=== PATIENT | male | born 1970 | race Caucasian/White ===

== ENCOUNTER 2021-07-29 10:29 | Inpatient (IN) | payer OTHER ==
[~2021-07-29] VITALS: Ht 182.9 cm; Wt 126.0 kg
[~2021-07-29 10:29] MED LIST: RXTRAM50 PO; SUCR1 PO; TOPI100 PO; TRAM50 PO
[2021-07-29 15:21] LABS: BASOPHILS ABSOLUTE AUTO 0.03 K/mm3 (0.00-0.23); BASOPHILS PERCENT AUTO 0 % (0-2); EOSINOPHILS ABSOLUTE AUTO 0.04 K/mm3 (0.00-0.68); EOSINOPHILS PERCENT AUTO 0 % (0-6); Hematocrit 44.1 % (37.0-53.0); Hemoglobin 14.9 g/dL (13.5-17.5); IMMATURE GRAN ABSOLUTE AUTO 0.03 K/mm3 (0.00-0.10); IMMATURE GRAN PERCENT AUTO 0 % (0-1); LYMPHOCYTES ABSOLUTE AUTO 2.36 K/mm3 (0.84-5.20); LYMPHOCYTES PERCENT AUTO 24 % (21-46); MONOCYTES ABSOLUTE AUTO 0.57 K/mm3 (0.16-1.47); MONOCYTES PERCENT AUTO 6 % (4-13); Mean Corpuscular HGB 29.4 pg (26.0-34.0); Mean Corpuscular HGB Conc 33.8 g/dL (31.5-36.5); Mean Corpuscular Volume 87 fL (80-100); NEUTROPHILS ABSOLUTE AUTO 6.69 K/mm3 (1.96-9.15); NEUTROPHILS PERCENT AUTO 69 % (41-73); Platelet Count 255 K/mm3 (150-400); RDW Coefficient Variation 14.4 % (11.7-14.2); RDW Standard Deviation 45.8 fL (35.1-46.3); Red Blood Cell Count 5.07 M/mm3 (4.30-5.90); White Blood Cell Count 9.72 K/mm3 (4.00-11.30)
[2021-07-29 15:45] LABS: C-REACTIVE PROTEIN, EXT RANGE 2.33 mg/dL (0.000-0.300)
[2021-07-29 15:47] LABS: Albumin, Blood 3.5 g/dL (3.4-5.0); Albumin/Globulin Ratio 0.8 (0.8-1.8); Bilirubin, Total 0.6 mg/dL (0.1-1.0); Bun/Creatinine Ratio 27.8 (12.0-20.0); Calcium, Blood 9.3 mg/dL (8.5-10.1); Creatinine, Blood 0.58 mg/dL (0.60-1.20); Globulin, Blood 4.3 g/dL (2.2-4.0); Potassium, Blood 3.8 mmol/L (3.5-5.5); Total Protein, Blood 7.8 g/dL (6.4-8.2)
[2021-07-29 20:00] LABS: Influenza A, PCR NEGATIVE (NEGATIVE); Influenza B, PCR NEGATIVE (NEGATIVE); Resp Syncytial Virus, PCR NEGATIVE (NEGATIVE); SARS-Cov-2 (COVID-19) PCR, MMC NEGATIVE (NEGATIVE)
[2021-07-30 04:59] LABS: BASOPHILS ABSOLUTE AUTO 0.06 K/mm3 (0.00-0.23); BASOPHILS PERCENT AUTO 1 % (0-2); EOSINOPHILS ABSOLUTE AUTO 0.09 K/mm3 (0.00-0.68); EOSINOPHILS PERCENT AUTO 1 % (0-6); Hematocrit 42.2 % (37.0-53.0); Hemoglobin 14.2 g/dL (13.5-17.5); IMMATURE GRAN ABSOLUTE AUTO 0.04 K/mm3 (0.00-0.10); IMMATURE GRAN PERCENT AUTO 0 % (0-1); LYMPHOCYTES ABSOLUTE AUTO 2.76 K/mm3 (0.84-5.20); LYMPHOCYTES PERCENT AUTO 23 % (21-46); MONOCYTES ABSOLUTE AUTO 0.92 K/mm3 (0.16-1.47); MONOCYTES PERCENT AUTO 8 % (4-13); Mean Corpuscular HGB 29.6 pg (26.0-34.0); Mean Corpuscular HGB Conc 33.6 g/dL (31.5-36.5); Mean Corpuscular Volume 88 fL (80-100); Mean Platelet Volume 10.1 fL (9.1-12.4); NEUTROPHILS ABSOLUTE AUTO 7.97 K/mm3 (1.96-9.15); NEUTROPHILS PERCENT AUTO 67 % (41-73); Platelet Count 232 K/mm3 (150-400); RDW Coefficient Variation 14.2 % (11.7-14.2); RDW Standard Deviation 45.9 fL (35.1-46.3); White Blood Cell Count 11.84 K/mm3 (4.00-11.30)
[2021-07-30 05:17] LABS: Albumin, Blood 3.1 g/dL (3.4-5.0); Albumin/Globulin Ratio 0.8 (0.8-1.8); Bilirubin, Total 0.4 mg/dL (0.1-1.0); Bun/Creatinine Ratio 22.6 (12.0-20.0); Calcium, Blood 8.8 mg/dL (8.5-10.1); Creatinine, Blood 0.71 mg/dL (0.60-1.20); Globulin, Blood 3.7 g/dL (2.2-4.0); Potassium, Blood 3.6 mmol/L (3.5-5.5); Total Protein, Blood 6.8 g/dL (6.4-8.2)
[2021-07-31 04:38] LABS: Hematocrit 43.2 % (37.0-53.0); Hemoglobin 14.4 g/dL (13.5-17.5); Mean Corpuscular HGB Conc 33.3 g/dL (31.5-36.5); Mean Corpuscular Volume 87 fL (80-100); Platelet Count 237 K/mm3 (150-400); RDW Coefficient Variation 14.1 % (11.7-14.2); RDW Standard Deviation 45.4 fL (35.1-46.3); Red Blood Cell Count 4.96 M/mm3 (4.30-5.90); White Blood Cell Count 9.84 K/mm3 (4.00-11.30)
[2021-07-31 04:55] LABS: Anion Gap 6 mmol/L (6-16); Blood Urea Nitrogen 14 mg/dL (8-24); Bun/Creatinine Ratio 19.6 (12.0-20.0); CO2, Blood 27 mmol/L (21-32); Calcium, Blood 8.4 mg/dL (8.5-10.1); Chloride, Blood 104 mmol/L (98-108); Creatinine, Blood 0.71 mg/dL (0.60-1.20); Glomerular Filtration Rate 112 (60-); Glucose, Blood 247 mg/dL (70-99); Phosphorus, Blood 3.6 mg/dL (2.5-4.9); Potassium, Blood 3.4 mmol/L (3.5-5.5); Sodium, Blood 137 mmol/L (136-145)
[2021-07-31 09:28] LABS: Vancomycin, Trough 18.6 ug/mL (5.0-10.0)
[2021-08-02 04:56] LABS: Hematocrit 43.4 % (37.0-53.0); Hemoglobin 14.4 g/dL (13.5-17.5); Mean Corpuscular HGB 29.1 pg (26.0-34.0); Mean Corpuscular HGB Conc 33.2 g/dL (31.5-36.5); Mean Corpuscular Volume 88 fL (80-100); Mean Platelet Volume 10.1 fL (9.1-12.4); Platelet Count 240 K/mm3 (150-400); RDW Coefficient Variation 14.3 % (11.7-14.2); RDW Standard Deviation 45.4 fL (35.1-46.3); Red Blood Cell Count 4.95 M/mm3 (4.30-5.90); White Blood Cell Count 11.03 K/mm3 (4.00-11.30)
[2021-08-02 05:15] LABS: Albumin, Blood 3.1 g/dL (3.4-5.0); Anion Gap 8 mmol/L (6-16); Blood Urea Nitrogen 13 mg/dL (8-24); Bun/Creatinine Ratio 17.3 (12.0-20.0); CO2, Blood 27 mmol/L (21-32); Calcium, Blood 8.9 mg/dL (8.5-10.1); Chloride, Blood 101 mmol/L (98-108); Creatinine, Blood 0.75 mg/dL (0.60-1.20); Glomerular Filtration Rate 111 (60-); Glucose, Blood 280 mg/dL (70-99); Phosphorus, Blood 3.7 mg/dL (2.5-4.9); Potassium, Blood 3.5 mmol/L (3.5-5.5); Sodium, Blood 136 mmol/L (136-145)
[2021-08-02 13:43] LABS: Vancomycin, Trough 15.2 ug/mL (5.0-10.0)
[2021-08-03] MEDS ORDERED: BASAGLAR K100 UNIT/1 SC (12:54)
[2021-08-03] MEDS ORDERED: HUMALOG JU100 UNIT/2 SC (12:56)
[2021-08-03] MEDS ORDERED: Percocet 5-3251 EACH PO (13:00)
[2021-08-03] MEDS ORDERED: HUMALOG KW100 UNIT/1 (13:02)
== END 2021-08-03 13:30 | disposition home or self-care (01) | DRG 617 ==
LOC: ER 10:29 → MEDS 10:30 → ER 18:42 → MEDS 18:42
PROVIDERS: Internal Medicine; Physician Assistant; Podiatrist Foot & Ankle Surgery; ADMIT Internal Medicine
PROC: 0Y6M0ZB Detachment at Right Foot, Partial 2nd Ray, Open Approach (ICD-10-PCS; principal; 2021-08-02 11:30)
DX: E11.69 Type 2 diabetes mellitus with other specified complication (principal); M86.8X7 Other osteomyelitis, ankle and foot; E87.1 Hypo-osmolality and hyponatremia; Z20.822 Contact with and (suspected) exposure to COVID-19; E11.51 Type 2 diabetes mellitus with diabetic peripheral angiopathy without gangrene; E11.621 Type 2 diabetes mellitus with foot ulcer; E87.6 Hypokalemia; E66.9 Obesity, unspecified; Z68.38 Body mass index [BMI] 38.0-38.9, adult; Z79.899 Other long term (current) drug therapy
CPT/HCPCS: 0241U; 36415; 73620; 73720; 80053; 80069; 80202; 82947; 83036; 83605; 85025; 85027; 85651; 86140; 87040; 90471; 90714; 93005; 93010; 96365; 96365-59; 96366; 96366-59; 96368; 96372; 96375; 99285-25; A9270; A9579; G0378; J0696; J1650; J1815; J2250; J2543; J2704; J3010; J3370; J3480; J7030; J7040; J7060; J7120

== ENCOUNTER 2022-05-31 23:23 | Emergency (ER) | payer OTHER ==
[~2022-05-31] VITALS: Ht 182.9 cm; Wt 83.9 kg
[~2022-05-31 23:23] MED LIST changes: +BASAGLAR K100 UNIT/1 SC; +HUMALOG JU100 UNIT/2 SC; +HUMALOG KW100 UNIT/1; +Percocet 5-3251 EACH PO
== END 2022-06-01 02:40 | disposition home or self-care (01) ==
LOC: ER 23:23
DX: S90.414A Abrasion, right lesser toe(s), initial encounter (principal); E11.9 Type 2 diabetes mellitus without complications; X58.XXXA Exposure to other specified factors, initial encounter; Z79.4 Long term (current) use of insulin; Z89.421 Acquired absence of other right toe(s)
CPT/HCPCS: 99283

== ENCOUNTER → 2023-03-23 | Outpatient (CLI) | payer OTHER ==
[~2023-03-23] MED LIST changes: +STEGLATRO15 MG
== END ==
LOC: LAB 15:50 → LAB SHORT 15:50
DX: R73.03 Prediabetes (principal)
CPT/HCPCS: 83036

== ENCOUNTER 2023-03-26 11:54 | Day surgery (SDC) | payer OTHER ==
[~2023-03-26] VITALS: Ht 182.9 cm; Wt 122.5 kg
--- NOTE | 2023-03-26 12:36 | NUR ---
03/26/23 1236 Zenaida Cross IN AT 1215 DAYNA IN AT 1216 CALL LIGHT AT BEDSIDE
[2023-03-26 13:16] VITALS: BP 111/67
--- NOTE | 2023-03-26 13:25 | NUR ---
03/26/23 9205 KYAW AGUERO PT STATES THAT HE HAS NEUROPATHY IN HIS FEET. HE DOES NOT FEEL DIZZY FROM ANYTHING WE HAVE DONE, BUT CAN BE UNSTEADY FROM THAT. AT TIMES HE USES A CANE AND HAS REPORTED THAT HE FALLS ON OCCASSION.
[2023-03-27] MEDS ORDERED: CEPH500 PO (21:34)
== END 2023-03-26 13:32 | disposition home or self-care (01) ==
LOC: ORSCSDS 11:54
PROVIDERS: Ophthalmology
PROC: 08RJ3JZ Replacement of Right Lens with Synthetic Substitute, Percutaneous Approach (ICD-10-PCS; principal; 2023-03-26 13:00)
DX: E11.36 Type 2 diabetes mellitus with diabetic cataract (principal); H25.13 Age-related nuclear cataract, bilateral; I10 Essential (primary) hypertension; G40.909 Epilepsy, unspecified, not intractable, without status epilepticus; Z79.899 Other long term (current) drug therapy
CPT/HCPCS: 82947; J2250; J3010; J3301; J7040; V2632

== ENCOUNTER 2023-03-27 21:15 | Emergency (ER) | payer OTHER ==
[~2023-03-27] VITALS: Ht 182.9 cm; Wt 122.5 kg
[2023-03-27 21:24] VITALS: BP 140/102
[2023-03-27] MEDS ORDERED: CEPH500 PO (21:34)
== END 2023-03-27 21:41 | disposition home or self-care (01) ==
LOC: ER 21:15
DX: L03.115 Cellulitis of right lower limb (principal); E11.9 Type 2 diabetes mellitus without complications; Z88.8 Allergy status to other drugs, medicaments and biological substances
CPT/HCPCS: 99283; A9270

== ENCOUNTER 2023-04-02 11:07 | Day surgery (SDC) | payer OTHER ==
[~2023-04-02] VITALS: Ht 182.9 cm; Wt 122.5 kg
[~2023-04-02 11:07] MED LIST changes: +CEPH500 PO
[2023-04-02 13:10] VITALS: BP 104/67
== END 2023-04-02 13:26 | disposition home or self-care (01) ==
LOC: ORSCSDS 11:07
PROVIDERS: Ophthalmology
PROC: 08RK3JZ Replacement of Left Lens with Synthetic Substitute, Percutaneous Approach (ICD-10-PCS; principal; 2023-04-02 13:00)
DX: H25.12 Age-related nuclear cataract, left eye (principal); Z96.1 Presence of intraocular lens; E11.36 Type 2 diabetes mellitus with diabetic cataract; E66.9 Obesity, unspecified; Z68.36 Body mass index [BMI] 36.0-36.9, adult; R56.9 Unspecified convulsions; I10 Essential (primary) hypertension; Z79.899 Other long term (current) drug therapy
CPT/HCPCS: 82947; J2250; J3010; J3301; J7040; V2632

== ENCOUNTER 2023-09-17 15:16 | Inpatient (IN) | payer OTHER ==
[~2023-09-17] VITALS: Ht 182.9 cm; Wt 126.1 kg
[~2023-09-17 15:16] MED LIST changes: -ACET325 PO; -CYMBALTA30 M2 PO; -SULTRIDS PO; -VISBIOME 112.51 EACH PO
[2023-09-17 16:03] LABS: BASOPHILS ABSOLUTE AUTO 0.04 K/mm3 (0.00-0.23); BASOPHILS PERCENT AUTO 0 % (0-2); EOSINOPHILS ABSOLUTE AUTO 0.05 K/mm3 (0.00-0.68); EOSINOPHILS PERCENT AUTO 0 % (0-6); Hematocrit 38.7 % (37.0-53.0); Hemoglobin 13.3 g/dL (13.5-17.5); IMMATURE GRAN PERCENT AUTO 1 % (0-1); LYMPHOCYTES ABSOLUTE AUTO 1.17 K/mm3 (0.84-5.20); LYMPHOCYTES PERCENT AUTO 10 % (21-46); MONOCYTES ABSOLUTE AUTO 1.05 K/mm3 (0.16-1.47); MONOCYTES PERCENT AUTO 9 % (4-13); Mean Corpuscular HGB 29.3 pg (26.0-34.0); Mean Corpuscular HGB Conc 34.4 g/dL (31.5-36.5); Mean Corpuscular Volume 85 fL (80-100); Mean Platelet Volume 8.8 fL (9.1-12.4); NEUTROPHILS ABSOLUTE AUTO 9.22 K/mm3 (1.96-9.15); NEUTROPHILS PERCENT AUTO 79 % (41-73); Platelet Count 311 K/mm3 (150-400); RDW Coefficient Variation 16.7 % (11.7-14.2); RDW Standard Deviation 52.1 fL (35.1-46.3); Red Blood Cell Count 4.54 M/mm3 (4.30-5.90); White Blood Cell Count 11.63 K/mm3 (4.00-11.30)
[2023-09-17 16:26] LABS: Albumin, Blood 2.6 g/dL (3.4-5.0); Albumin/Globulin Ratio 0.5 (0.8-1.8); Bilirubin, Total 0.5 mg/dL (0.1-1.0); Bun/Creatinine Ratio 22.8 (12.0-20.0); Calcium, Blood 9.1 mg/dL (8.5-10.1); Creatinine, Blood 0.61 mg/dL (0.60-1.20); Globulin, Blood 4.8 g/dL (2.2-4.0); Potassium, Blood 3.3 mmol/L (3.5-5.5); Total Protein, Blood 7.4 g/dL (6.4-8.2)
[2023-09-17] MEDS ORDERED: Cefepime HCl 2,000 MG in NS 100 ML IV ONE (19:25)
[2023-09-17] MEDS ORDERED: Vancomycin HCL 2,000 MG in NS 500 ML IV ONE (19:55)
[2023-09-17] MEDS ORDERED: Lactobacil 2-S.Thermo-Bifido 1 1 Cap PO SCH (21:00)
[2023-09-17] MEDS ORDERED: DULoxetine HCL 30 MG Cap DR PO SCH (21:00)
[2023-09-17] MEDS ORDERED: CYMBALTA30 M2 PO (21:58)
[2023-09-17 22:17] VITALS: BP 138/83
[2023-09-17] MEDS ORDERED: Potassium Chloride 20 MEQ TabCR PO ONE (23:00)
[2023-09-18] MEDS ORDERED: Ampicillin Sod/Sulbactam Sod 3 GM in NS 100 ML IV SCH
[2023-09-18 02:18] VITALS: BP 113/57
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
[2023-09-18 06:10] LABS: Hematocrit 39.2 % (37.0-53.0); Hemoglobin 12.8 g/dL (13.5-17.5); Mean Corpuscular HGB Conc 32.7 g/dL (31.5-36.5); Mean Corpuscular Volume 89 fL (80-100); Mean Platelet Volume 9.2 fL (9.1-12.4); Platelet Count 314 K/mm3 (150-400); RDW Standard Deviation 55.4 fL (35.1-46.3); Red Blood Cell Count 4.42 M/mm3 (4.30-5.90); White Blood Cell Count 11.29 K/mm3 (4.00-11.30)
[2023-09-18 06:37] LABS: Albumin, Blood 2.4 g/dL (3.4-5.0); Albumin/Globulin Ratio 0.6 (0.8-1.8); Bilirubin, Total 0.7 mg/dL (0.1-1.0); Bun/Creatinine Ratio 16.7 (12.0-20.0); Calcium, Blood 8.5 mg/dL (8.5-10.1); Creatinine, Blood 0.66 mg/dL (0.60-1.20); Globulin, Blood 4.3 g/dL (2.2-4.0); Potassium, Blood 3.4 mmol/L (3.5-5.5); Total Protein, Blood 6.7 g/dL (6.4-8.2)
[2023-09-18 07:46] VITALS: BP 136/78
[2023-09-18] MEDS ORDERED: Potassium Chloride 20 MEQ TabCR PO ONE (08:00)
[2023-09-18] MEDS ORDERED: Cefepime HCl 2,000 MG in NS 100 ML IV SCH ×2 (08:00→12:00)
[2023-09-18] MEDS ORDERED: Vancomycin HCL 1,750 MG in NS 500 ML IV SCH (08:00)
[2023-09-18] MEDS ORDERED: Empagliflozin 10 MG TAB PO SCH (09:00)
[2023-09-18] MEDS ORDERED: NS 250 ML IV PRN (09:35)
--- NOTE | 2023-09-18 10:59 | NUR ---
"Spiritual Care | Pt. Request Pt. is sitting up on the chuck eof his bed when he welcomes my visit. Pt. is pleasant and as I facilitate a life review rapport is established. Pt. verbalized that he has already had a visit from his medical records director, but welcomed this visit. Another worship staff member arrived as I prayed with the Pt. Pt. verbalized gratitude for the spiritual care visit and welcomed this real estate assistant to return."
[2023-09-18] MEDS ORDERED: Meropenem 2,000 MG in NS 250 ML IV SCH (12:00)
[2023-09-18 14:59] VITALS: BP 143/79
--- NOTE | 2023-09-18 19:03 | NUR ---
SHIFT SUMMARY- PT ALERT AND ORIENTED, 1PA WITH TRANSFERS. PT WAS SEEN BY PODIATRY, HE HAD AN MRI DONE TODAY AND PER THE PROGRAM PRODUCTION SPECIALIST IT WAS NEGATIVE FOR OSTEOMYOLITIS. HE TOLD THE PT HE WILL NEED A COUPLE DAYS OF IV ABX AND THEN SWITCH TO PO ABX. NO SURGERY PLANNED. WOUND CARE AND DRESSING CHANGE ORDERS PLACED. PT NOW NON-WEIGHT BEARING ON THE RLE. PT WILL NEED A HARD COPY SCRIPT FOR A KNEE WALKER. SPOKE TO CARE MANAGEMENT , THIS IS NOT A FORM OF DME THEY CAN ASSIST THE PT IN OBTAINING.
[2023-09-18 20:32] VITALS: BP 131/69
--- NOTE | 2023-09-19 00:02 | NUR ---
PT REPORTS HAVING DIFFICULTY SWALLOWING CERTAIN FOODS, REPORTS WILL HAVE PERIODS OF APNEA DUE TO INABILITY TO FULLY CLEAR CERTAIN FOODS. PT IS AWARE OF WHICH FOODS EXACERBATE AND TRIES TO AVOID. WILL MENTION TO DAY SHIFT RN TO SEE IF HOSPITALIST WANTS TO FOLLOW UP WITH A SPEECH EVAL.
[2023-09-19 04:55] VITALS: BP 139/74
[2023-09-19 07:04] LABS: BASOPHILS ABSOLUTE AUTO 0.04 K/mm3 (0.00-0.23); BASOPHILS PERCENT AUTO 0 % (0-2); EOSINOPHILS ABSOLUTE AUTO 0.16 K/mm3 (0.00-0.68); EOSINOPHILS PERCENT AUTO 2 % (0-6); Hematocrit 38.2 % (37.0-53.0); Hemoglobin 12.9 g/dL (13.5-17.5); IMMATURE GRAN ABSOLUTE AUTO 0.16 K/mm3 (0.00-0.10); IMMATURE GRAN PERCENT AUTO 2 % (0-1); LYMPHOCYTES ABSOLUTE AUTO 0.89 K/mm3 (0.84-5.20); LYMPHOCYTES PERCENT AUTO 10 % (21-46); MONOCYTES ABSOLUTE AUTO 0.93 K/mm3 (0.16-1.47); MONOCYTES PERCENT AUTO 10 % (4-13); Mean Corpuscular HGB 29.3 pg (26.0-34.0); Mean Corpuscular HGB Conc 33.8 g/dL (31.5-36.5); Mean Corpuscular Volume 87 fL (80-100); Mean Platelet Volume 8.5 fL (9.1-12.4); NEUTROPHILS ABSOLUTE AUTO 7.04 K/mm3 (1.96-9.15); NEUTROPHILS PERCENT AUTO 76 % (41-73); Platelet Count 292 K/mm3 (150-400); RDW Coefficient Variation 16.8 % (11.7-14.2); RDW Standard Deviation 53.7 fL (35.1-46.3); Red Blood Cell Count 4.41 M/mm3 (4.30-5.90); White Blood Cell Count 9.22 K/mm3 (4.00-11.30)
[2023-09-19 07:30] LABS: Vancomycin, Trough 10.5 ug/mL (5.0-10.0)
[2023-09-19 07:33] LABS: Calcium, Blood 8.2 mg/dL (8.5-10.1); Creatinine, Blood 0.62 mg/dL (0.60-1.20); Potassium, Blood 3.5 mmol/L (3.5-5.5)
[2023-09-19] MEDS ORDERED: NS 250 ML IV PRN (07:40)
[2023-09-19 07:44] VITALS: BP 141/80
[2023-09-19] MEDS ORDERED: Vancomycin HCL 1,500 MG in NS 250 ML IV SCH (08:00)
--- NOTE | 2023-09-19 10:55 | NUR ---
WOUND CARE COMPLETED PER ORDERS. SEE WOUND ASSESSMENT. PATIENT TOLERATED WELL. REPORTS NUMBESS TO BILAT FEET. REPORTED TO MIQUEL MCINTOSH.
[2023-09-19 15:34] VITALS: BP 124/75
--- NOTE | 2023-09-19 16:48 | NUR ---
SHIFT ASSESSMENT PATIENT PRESENTED WITH RIGHT FOOT WOUND TX VANCOMYOCIN, CIFEPINE. RIGHT LEG HAS MID LOWER LEG DEMARCATION. LEG IN AREA WAS WARM TO THE TOUCH AND SWOLLEN. VSS. UPON EXAM OF AREA ABOVE THE ULCERATION PATIENT REPORTED NO PAIN,NO DIZZINESS, NAUSEA, VOMITING REPORTED. NO FEVER REPORTED. BREAK NURSE CHANGED DRESSING AND REPORTED NO VISIBLE PUS/SLOUGH. RIGHT LEG IS VISIBLY LARGER THAN THE LEFT DUE TO THE SWELLING. DEMARCATION HAS IMPROVED.
--- NOTE | 2023-09-19 19:18 | NUR ---
SHIFT SUMMARY PATIENT RIGHT LEG EDEMA AND WARMTH ON LEG HAVE IMPROVED. THE ANTIBIOTICS VANYCOMYCIN, CIFIPINE GIVEN TWICE DURING SHIFT FOR TREATMENT OF INFECTIONS. PATIENT VITAL SIGNS ARE STABLE. PATIENT ABLE TO AMBULATE. VSS. NEURO WNL
--- NOTE | 2023-09-19 19:33 | NUR ---
SPEECH PATHOLOGIST ORDERED SOFT DIET FOR PATIENT D/T PATIENT HAVING DIFFICULTY SWALLOWING SOLID FOODS.
--- NOTE | 2023-09-19 19:36 | NUR ---
PATIENT BLOOD CULTURES STILL PENDING. OSTEOMYLTSIS NOTED
[2023-09-19 19:48] VITALS: BP 132/73
[2023-09-19] MEDS ORDERED: Acetaminophen 325 MG TABLET PO PRN (20:45)
[2023-09-20 04:33] VITALS: BP 131/79
[2023-09-20 07:19] LABS: BASOPHILS ABSOLUTE AUTO 0.06 K/mm3 (0.00-0.23); BASOPHILS PERCENT AUTO 1 % (0-2); EOSINOPHILS ABSOLUTE AUTO 0.16 K/mm3 (0.00-0.68); EOSINOPHILS PERCENT AUTO 2 % (0-6); Hematocrit 39.8 % (37.0-53.0); Hemoglobin 13.3 g/dL (13.5-17.5); IMMATURE GRAN ABSOLUTE AUTO 0.19 K/mm3 (0.00-0.10); IMMATURE GRAN PERCENT AUTO 2 % (0-1); LYMPHOCYTES PERCENT AUTO 11 % (21-46); MONOCYTES ABSOLUTE AUTO 0.91 K/mm3 (0.16-1.47); MONOCYTES PERCENT AUTO 10 % (4-13); Mean Corpuscular HGB 28.9 pg (26.0-34.0); Mean Corpuscular HGB Conc 33.4 g/dL (31.5-36.5); Mean Corpuscular Volume 87 fL (80-100); Mean Platelet Volume 8.6 fL (9.1-12.4); NEUTROPHILS ABSOLUTE AUTO 6.89 K/mm3 (1.96-9.15); NEUTROPHILS PERCENT AUTO 75 % (41-73); Platelet Count 308 K/mm3 (150-400); RDW Coefficient Variation 16.8 % (11.7-14.2); RDW Standard Deviation 53.4 fL (35.1-46.3); White Blood Cell Count 9.21 K/mm3 (4.00-11.30)
[2023-09-20 07:31] LABS: Bun/Creatinine Ratio 14.9 (12.0-20.0); Calcium, Blood 8.1 mg/dL (8.5-10.1); Creatinine, Blood 0.6 mg/dL (0.60-1.20); Potassium, Blood 3.4 mmol/L (3.5-5.5)
[2023-09-20 07:33] LABS: Vancomycin, Trough 14.5 ug/mL (5.0-10.0)
[2023-09-20 07:50] VITALS: BP 141/83
[2023-09-20] MEDS ORDERED: Potassium Chloride 10 Meq Tablet SA PO ONE (07:50)
[2023-09-20 17:23] VITALS: BP 145/86
--- NOTE | 2023-09-20 17:43 | NUR ---
SHIFT SUMMARY MR HOFFMAN IS OX4, TALKATIVE. NON WT BEARING TO R FOOT. USED WALKER AND GAIT BELT TO GO INTO BATHROOM WITH 1 PERSON ASSISTANCE. UNSTEADY GAIT. RIGHT FOOT DRESSING REDRESSED BY JOSE MCINTOSH TODAY. TAKING TYLENOL FOR PAIN WITH RELIEF. C/O SOME EPISODES OF CRAMPING TO RIGHT OUTER LOWER LEG. ENCOURAGED TO KEEP R FOOT ELEVATED MUCH POSSIBLE. BED LOW, CALL LIGHT IN REACH, BED ALARM ON.
[2023-09-20 19:45] VITALS: BP 119/73
[2023-09-21 04:08] VITALS: BP 123/65
[2023-09-21 05:35] LABS: BASOPHILS ABSOLUTE AUTO 0.06 K/mm3 (0.00-0.23); BASOPHILS PERCENT AUTO 1 % (0-2); EOSINOPHILS ABSOLUTE AUTO 0.16 K/mm3 (0.00-0.68); EOSINOPHILS PERCENT AUTO 2 % (0-6); Hematocrit 38.2 % (37.0-53.0); Hemoglobin 12.6 g/dL (13.5-17.5); IMMATURE GRAN ABSOLUTE AUTO 0.21 K/mm3 (0.00-0.10); IMMATURE GRAN PERCENT AUTO 2 % (0-1); LYMPHOCYTES ABSOLUTE AUTO 1.23 K/mm3 (0.84-5.20); LYMPHOCYTES PERCENT AUTO 12 % (21-46); MONOCYTES ABSOLUTE AUTO 0.91 K/mm3 (0.16-1.47); MONOCYTES PERCENT AUTO 9 % (4-13); Mean Corpuscular Volume 88 fL (80-100); Mean Platelet Volume 8.7 fL (9.1-12.4); NEUTROPHILS ABSOLUTE AUTO 7.87 K/mm3 (1.96-9.15); NEUTROPHILS PERCENT AUTO 75 % (41-73); Platelet Count 332 K/mm3 (150-400); RDW Coefficient Variation 16.4 % (11.7-14.2); RDW Standard Deviation 52.8 fL (35.1-46.3); Red Blood Cell Count 4.35 M/mm3 (4.30-5.90); White Blood Cell Count 10.44 K/mm3 (4.00-11.30)
[2023-09-21 05:58] LABS: Bun/Creatinine Ratio 14.6 (12.0-20.0); Calcium, Blood 8.1 mg/dL (8.5-10.1); Creatinine, Blood 0.62 mg/dL (0.60-1.20); Potassium, Blood 3.4 mmol/L (3.5-5.5)
[2023-09-21 07:26] VITALS: BP 138/79
[2023-09-21] MEDS ORDERED: Potassium Chloride 20 MEQ TabCR PO ONE (08:00)
[2023-09-21] MEDS ORDERED: ACET325 PO (12:41)
[2023-09-21] MEDS ORDERED: VISBIOME 112.51 EACH PO (12:41)
[2023-09-21] MEDS ORDERED: SULTRIDS PO (12:42)
[2023-09-21 15:05] VITALS: BP 124/80
--- NOTE | 2023-09-21 17:06 | NUR ---
DISCHARGE: PT D/C @1630 VIA WHEELCHAIR WITH FRIEND. PERSONAL WALKER DELIVERED TO PT ROOM PRIOR TO D/C. WOUND EDUCATION AND DRESSING CHANGE EDUCATION COMPLETED PRIOR TO D/C. HOME HEALTH ORDERED. PT AWARE TO EXPECT A CALL FROM HOME HEALTH. MEDICATIONS FAXED TO [facility]. IV REMOVED W/O COMPLCATIONS. WOUND CHANGED PRIOR TO D/C. NEW PHOTO PLACED IN PT CHART. EDUCATION PROVIDED ON FOLLOW-UP APPOINTMENTS AND WEIGHT BEARING STATUS.
== END 2023-09-21 16:34 | disposition home health service (06) | DRG 638 ==
LOC: ER 15:16 → MEDS 15:17
PROVIDERS: Family Medicine; Physician Assistant; Student in an Organized Health Care Education/Training Program; ADMIT Student in an Organized Health Care Education/Training Program
DX: E11.621 Type 2 diabetes mellitus with foot ulcer (principal); L03.115 Cellulitis of right lower limb; D64.9 Anemia, unspecified; R13.10 Dysphagia, unspecified; E87.6 Hypokalemia; E11.40 Type 2 diabetes mellitus with diabetic neuropathy, unspecified; B95.8 Unspecified staphylococcus as the cause of diseases classified elsewhere; B96.89 Other specified bacterial agents as the cause of diseases classified elsewhere; L97.519 Non-pressure chronic ulcer of other part of right foot with unspecified severity; E11.610 Type 2 diabetes mellitus with diabetic neuropathic arthropathy; Z89.421 Acquired absence of other right toe(s)
CPT/HCPCS: 36415; 73620; 73721; 80048; 80053; 80202; 83605; 85025; 85027; 85651; 86140; 87040; 92610; 96365; 96366; 96367; 96376; 97110; 97116; 97161; 97530; 99284-25; A9270; G0378; J0295; J0692; J3370; J7040; J7050

== ENCOUNTER → 2023-09-17 | Outpatient (CLI) | payer OTHER ==
[~2023-09-17] MED LIST changes: +ACET325 PO; +CYMBALTA30 M2 PO; -STEGLATRO15 MG; +STEGLATRO15 MG PO; +SULTRIDS PO; +VISBIOME 112.51 EACH PO
== END ==
LOC: LAB SHORT 16:16 → LAB 16:16
DX: L97.911 Non-pressure chronic ulcer of unspecified part of right lower leg limited to breakdown of skin (principal)
CPT/HCPCS: 87070; 87075; 87077; 87186; 87205

== ENCOUNTER 2023-12-15 11:11 | Inpatient (IN) | payer OTHER ==
[~2023-12-15] VITALS: Ht 182.9 cm; Wt 120.5 kg
[2023-12-15] VITALS (11 sets, daily range): BP systolic 93–128; BP diastolic 51–74
[~2023-12-15 11:11] MED LIST changes: +ACET325 PO; +CYMBALTA30 M2 PO; +GABA300 PO; +SULTRIDS PO; +VISBIOME 112.51 EACH PO
[2023-12-15] MEDS ORDERED: Acetaminophen 500 MG Tab PO SCH (12:15)
[2023-12-15] MEDS ORDERED: CeFAZolin Sodium 3,000 MG in NS 100 ML IV SCH (12:15)
[2023-12-15] MEDS ORDERED: OxyCODONE HCL 10 MG TABCR PO SCH (12:15)
[2023-12-15] MEDS ORDERED: Ropivacaine 0.5% HCl/Pf 123.125 MG,EPINEPHrine HCL 0.25 MG,Ketorolac Tromethamine 15 MG... INFIL SCH (12:15)
[2023-12-15] MEDS ORDERED: Chlorhexidine Mouth Care 15 ML UDC MT SCH (12:15)
[2023-12-15] MEDS ORDERED: Lactated Ringer's 1,000 ML IV SCH (12:15)
[2023-12-15] MEDS ORDERED: Tranexamic Acid 100 ML IV SCH (12:15)
[2023-12-15] MEDS ORDERED: BACTRIM DS TAB1 EAC1 PO (12:29)
--- NOTE | 2023-12-15 13:52 | NUR ---
History, Chart, Medications and Allergies reviewed before start of procedure. Pre-Op teaching done. Pt verbalizes understanding. Patient confirms NPO status and agrees with scheduled surgery. Patient reports completing Chlorhexadine shower X2 prior to admission to hospital. Patient States Post-Procedure ride home has been arranged.
--- NOTE | 2023-12-15 14:05 | NUR ---
PT BELONGINGS INCLUDING OVERNIGHT BAG, WALKING BOOT, AND COAT, TRANSFERRED TO PT'S ROOM ON SURGICAL FLOOR PER PT'S REQUEST.
[2023-12-15] MEDS ORDERED: FentaNYL Citrate 50 MCG/ML 2 ML Injection ONE ×2 (14:13→16:08)
[2023-12-15] MEDS ORDERED: propofoL 20 ML IV ONE (14:13)
[2023-12-15] MEDS ORDERED: Ondansetron HCl 2 MG / ML 2ML Vial ONE (14:14)
[2023-12-15] MEDS ORDERED: Lidocaine HCl 2% 20 ML MDV ONE (14:14)
[2023-12-15] MEDS ORDERED: Dexamethasone Sod Phos 10 MG/ML 1ML VIAL ONE (14:14)
[2023-12-15] MEDS ORDERED: Phenylephrine HCl 100 MCG/ML-NS 10MLSYR (1MG/10ML) ONE (14:37)
[2023-12-15] MEDS ORDERED: Bupivacaine 0.5% HCl 5 MG/ML 30MLVIAL ONE (15:20)
[2023-12-15] MEDS ORDERED: EpiNEPhrine 1 MG/1 ML 1ML Vial ONE (15:20)
[2023-12-15] MEDS ORDERED: Ketorolac Tromethamine 30mg Vial ONE (15:24)
[2023-12-15] MEDS ORDERED: Acetaminophen 325 MG TABLET PO PRN (15:55)
[2023-12-15] MEDS ORDERED: HYDROmorphone HCl/Pf 1MG SYR IV PRN (16:00)
[2023-12-15] MEDS ORDERED: FLU VACC TS2024-25(6MOS UP)/PF 45 MCG/0.5 ML SYRINGE IM SCH (16:00)
[2023-12-15] MEDS ORDERED: OxyCODONE HCL 5 MG TAB PO PRN (16:00)
[2023-12-15] MEDS ORDERED: HYDROcodone 10-APAP 325 TAB PO PRN (16:00)
--- NOTE | 2023-12-15 16:30 | NUR ---
PT ARRIVED TO THE ROOM AT APPROXIMATELY 1635. PT ALERT ORIENTED AND PAIN MANAGED UPON ARRIVAL. CALL LIGHT PLACED WITHIN REACH AND PT EDUCATED TO USE.
--- NOTE | 2023-12-15 17:05 | NUR ---
"Spiritual Care | Family support Family is in the waiting area. This record clerk sat with them and intitiated a life review. Listened with interest and empathy. When Pt. was brought for the surgical unit to his room, this record clerk directed family to bedside. Will remain available to the Pt. and family."
--- NOTE | 2023-12-15 20:21 | NUR ---
SHIFT SUMMARY PT IS POD#[facility] WITH [facility] BAILEY. PAIN MANAGED WITH OXY AND TYLENOL. PT REPORTS SOME PHANTOM PAINS. TOLERATING PO. PT USES CALL LIGHT APPROPRIATELY. HE HAS VOIDED.
[2023-12-15] MEDS ORDERED: Docusate Sodium 100 MG Cap PO SCH (21:00)
[2023-12-16 04:18] VITALS: BP 103/64
[2023-12-16 05:09] LABS: BASOPHILS ABSOLUTE AUTO 0.01 K/mm3 (0.00-0.23); BASOPHILS PERCENT AUTO 0 % (0-2); EOSINOPHILS ABSOLUTE AUTO 0.01 K/mm3 (0.00-0.68); EOSINOPHILS PERCENT AUTO 0 % (0-6); Hemoglobin 13.3 g/dL (13.5-17.5); IMMATURE GRAN ABSOLUTE AUTO 0.04 K/mm3 (0.00-0.10); IMMATURE GRAN PERCENT AUTO 0 % (0-1); LYMPHOCYTES ABSOLUTE AUTO 1.13 K/mm3 (0.84-5.20); LYMPHOCYTES PERCENT AUTO 12 % (21-46); MONOCYTES ABSOLUTE AUTO 0.62 K/mm3 (0.16-1.47); MONOCYTES PERCENT AUTO 6 % (4-13); Mean Corpuscular HGB 29.2 pg (26.0-34.0); Mean Corpuscular HGB Conc 32.4 g/dL (31.5-36.5); Mean Corpuscular Volume 90 fL (80-100); Mean Platelet Volume 9.6 fL (9.1-12.4); NEUTROPHILS ABSOLUTE AUTO 7.98 K/mm3 (1.96-9.15); NEUTROPHILS PERCENT AUTO 82 % (41-73); Platelet Count 217 K/mm3 (150-400); RDW Coefficient Variation 16.4 % (11.7-14.2); RDW Standard Deviation 54.3 fL (35.1-46.3); Red Blood Cell Count 4.56 M/mm3 (4.30-5.90); White Blood Cell Count 9.79 K/mm3 (4.00-11.30)
[2023-12-16 05:40] LABS: Bun/Creatinine Ratio 27.4 (12.0-20.0); Calcium, Blood 8.7 mg/dL (8.5-10.1); Creatinine, Blood 0.84 mg/dL (0.60-1.20); Potassium, Blood 4.2 mmol/L (3.5-5.5)
--- NOTE | 2023-12-16 06:24 | NUR ---
SHIFT SUMMARY POD 1 R BKA. NO ACUTE CHAGES OVERNIGHT. VSS, 1-2L O2 VIA NC PRN WHILE ASLEEP TO MAINTAIN SAT >90%, CONT BIOX IN USE. TOLERATING DIET. VOIDING. STAND/PIVOT TO BSC c 1 PERSON ASSIST. STUMP SOCK C/D/I. PT REPORTS PAIN TOLERABLE c INTERMITTENT PHANTOM PAIN/SPASMS, MEDICATED PER EMAR. CALL LIGHT IN REACH, BED IN LOWEST POSITION, WILL REPORT TO DAY RN.
[2023-12-16 07:05] VITALS: BP 108/64
--- NOTE | 2023-12-16 11:19 | NUR ---
Pt. is awake and sitting in a chair when he welcomes my visit. Facilitated a life review and addressed some of the new issues the Pt. is experiencing since his surgery. With theraputic listening the Pt. verbalized some of his expectations upon discharge. Considered matters of edward and belief. Pt. displayed evidence of a confident edward and also verbalized that he has many people praying for him. I also prayed for him. Pt. verbalized gratitude for the spiritual care visit.
--- NOTE | 2023-12-16 12:00 | NUR ---
ASSUMED CARE OF PT AT 0700 THIS AM. PT REPORTS HE IS DOING WELL, NO QUESTIONS OR CONCERNS. SEE DOCUMENTED VS AND ASSESSMENT. PT HAS WORKED WITH PHYSICAL THERAPY THIS AM, PLAN IS TO DISCHARGE TO SNF TOMORROW. MD HAS ALREADY PLACED ORDERS, CARE MANAGEMENT IS INTERVIEWING PT AT THIS TIME AND WILL COORDINATE PLACEMENT. PT DENIES NEEDS AT THIS TIME. PT OOB TO RECLINER CHAIR WITH CALL LIGHT IN REACH. WILL CONTINUE TO MONITOR.
[2023-12-16 15:48] VITALS: BP 98/64
[2023-12-16 15:50] VITALS: BP 99/57
--- NOTE | 2023-12-16 18:30 | NUR ---
NO CHANGES IN PT CONDITION SINCE LAST NOTE. PT HAD TWO VISITORS TODAY. VSS REMAIN STABLE, RLE STUMP REMAINS C/D/I. REFERRAL SENT TO [facility] TODAY. PT IS SITTING UP AT BEDSIDE IN CHAIR, CALL LIGHT IN REACH. PT STATES HE HAS NO NEEDS AT THIS TIME. MEDICATED FOR PAIN PER MD ORDERS.
[2023-12-16 19:30] VITALS: BP 100/61
[2023-12-17 04:05] VITALS: BP 98/67
--- NOTE | 2023-12-17 04:25 | NUR ---
SHIFT SUMMARY POD2 R BKA. PAIN MANAGED UTILIZING NPIS AND PER EMAR. 1PA FOR AMBULATION USING FWW AND GAIT BELT. JACOBY PO WELL. VOIDING WITHOUT DIFFICULTY. PASSING GAS, NO BM TONIGHT. STUMP INCISION CDI. GAUZE, KERLIX, STUMP SOCK IN PLACE. ELEVATING EXTREMITY ON PILLOW WHILE IN BED. PT ABLE TO REST DURING SHIFT. PT VOICED UNDERSTANDING OF PLAN OF CARE, DENIES QUESTIONS/CONCERNS AT THIS TIME.
[2023-12-17 07:07] VITALS: BP 80/53
[2023-12-17 07:10] VITALS: BP 89/59
--- NOTE | 2023-12-17 08:59 | NUR ---
Pt. is awake and sitting up in bed when he welcomes my visit. Pt. is pleasant and joyfully verbalized his expectation to be transferred to a rehab facility. Considered other matters of edward, friends, and the hindu. Prayed with the Pt. Pt. verbalzied gratitude for the spiritual care visit.
[2023-12-17 15:04] VITALS: BP 111/71
--- NOTE | 2023-12-17 18:33 | NUR ---
SHIFT SUMMARY POD 2 R BKA. NO ACUTE CHANGES TODAY. VSS. TOLERATING ORALS. VOIDING. AMBULATES USING FWW c GB & SBA, CAN STAND/PIVOT TO CHAIR IND. DRESSING CHANGED TO STUMP THIS AM, C/D/I. PT REPORTS PAIN TOLERABLE, MEDICATED PER EMAR. CALL LIGHT IN REACH, BED IN LOWEST POSITION, WILL REPORT TO STEVE MCINTOSH.
[2023-12-17 19:13] VITALS: BP 101/71
--- NOTE | 2023-12-18 03:58 | NUR ---
SHIFT SUMMARY POD3 R BKA. PAIN MANAGED UTILIZING NPIS AND PER EMAR. SURGICAL SITE W/O S/SX INFECTION, INCISION CDI. WELL APPROXIMATED. PT AMBULATES WELL WITH SBA, USES FWW TO BATHROOM. PT ABLE TO REST DURING SHIFT. PT VOICED UNDERSTANDING OF PLAN OF CARE, DENIES QUESTIONS/CONCERNS AT THIS TIME.
[2023-12-18 04:31] VITALS: BP 96/60
[2023-12-18 07:23] VITALS: BP 118/66
[2023-12-18 09:11] LABS: SARS-Cov-2 (COVID-19) PCR, MMC NEGATIVE (NEGATIVE)
[2023-12-18 09:54] VITALS: BP 129/83
--- NOTE | 2023-12-18 11:54 | NUR ---
Pt. is awake and sitting up in his recliner when he welcomes my visit. Pt. is pleasant, but verbalizes that he is waiting for approval to be discharged. Listen with interest and empathy and seek to normalize the Pt. experience. Pt. displayed evidence of understanding as well as committment to work at his recovery. Prayed with Pt. Pt. veerbalized gratitude for the spiritual care visit.
--- NOTE | 2023-12-18 14:38 | NUR ---
DISCHARGE: REPORT PASSED TO JOEY CARLOS RN. IV DC'D WNL, TIP INTACT. DRESSING CHANGED TO AQUACEL AND STUMP SOCK PLACED OVER TOP PER ORDER. PT LEFT UNIT VIA WHEELCHAIR WITH DC PACKET AT ABOUT 1415
== END 2023-12-18 14:30 | DRG 617 ==
LOC: SURS 11:11 → MEDS 11:11 → PRE IP 12:30 → SURS 17:33
PROVIDERS: ADMIT Orthopaedic Surgery
PROC: 0Y6H0Z3 Detachment at Right Lower Leg, Low, Open Approach (ICD-10-PCS; principal; 2023-12-15 12:30)
DX: E11.69 Type 2 diabetes mellitus with other specified complication (principal); A52.16 Charcot's arthropathy (tabetic); M86.671 Other chronic osteomyelitis, right ankle and foot; E11.610 Type 2 diabetes mellitus with diabetic neuropathic arthropathy; E11.621 Type 2 diabetes mellitus with foot ulcer; L97.519 Non-pressure chronic ulcer of other part of right foot with unspecified severity
CPT/HCPCS: 36415; 80048; 82947; 85025; 88307; 94760; 94762; 97110; 97116; 97162; A9270; J0171; J0690; J1100; J1885; J2371; J2405; J2704; J3010; J7120; U0002

== ENCOUNTER 2023-12-19 23:13 | Observation (INO) | payer OTHER ==
[~2023-12-19] VITALS: Ht 182.9 cm; Wt 113.4 kg
[~2023-12-19 23:13] MED LIST changes: +BACTRIM DS TAB1 EAC1 PO; +Gabapentin 300 MG Cap PO SCH; +Lactated Ringer's 1,000 ML IV SCH
[2023-12-19] MEDS ORDERED: Acetaminophen 325 MG TABLET PO PRN (23:45)
[2023-12-19] MEDS ORDERED: FLU VACC TS2024-25(6MOS UP)/PF 45 MCG/0.5 ML SYRINGE IM ONE (23:55)
[2023-12-20] VITALS (16 sets, daily range): BP systolic 99–140; BP diastolic 58–77
[2023-12-20] MEDS ORDERED: OxyCODONE HCL 5 MG TAB PO PRN (03:35)
[2023-12-20] MEDS ORDERED: TiZANidine HCl 4 MG Tab PO ONE (04:00)
--- NOTE | 2023-12-20 05:54 | NUR ---
PT ARRIVED TO FLOOR RATING HIGH LEVELS OF PAIN BUT DECLINED THE NEED FOR PAIN MEDICATION, EVENTUALLY AGREED TO TAKE MEDS FOR MANAGING HIS PAIN. R BKA DRESSING APPLIED IN ED, SURGEON WILL VIEW STUMP THIS MORNING, POSSIBLE I&D, PT NPO AT MIDNIGHT.
[2023-12-20 06:59] LABS: BASOPHILS ABSOLUTE AUTO 0.06 K/mm3 (0.00-0.23); BASOPHILS PERCENT AUTO 1 % (0-2); EOSINOPHILS ABSOLUTE AUTO 0.17 K/mm3 (0.00-0.68); EOSINOPHILS PERCENT AUTO 2 % (0-6); Hematocrit 40.8 % (37.0-53.0); Hemoglobin 13.4 g/dL (13.5-17.5); IMMATURE GRAN ABSOLUTE AUTO 0.04 K/mm3 (0.00-0.10); IMMATURE GRAN PERCENT AUTO 1 % (0-1); LYMPHOCYTES ABSOLUTE AUTO 2.38 K/mm3 (0.84-5.20); LYMPHOCYTES PERCENT AUTO 28 % (21-46); MONOCYTES ABSOLUTE AUTO 0.87 K/mm3 (0.16-1.47); MONOCYTES PERCENT AUTO 10 % (4-13); Mean Corpuscular HGB 29.4 pg (26.0-34.0); Mean Corpuscular HGB Conc 32.8 g/dL (31.5-36.5); Mean Corpuscular Volume 90 fL (80-100); Mean Platelet Volume 9.7 fL (9.1-12.4); NEUTROPHILS ABSOLUTE AUTO 4.91 K/mm3 (1.96-9.15); NEUTROPHILS PERCENT AUTO 58 % (41-73); Platelet Count 238 K/mm3 (150-400); RDW Coefficient Variation 15.9 % (11.7-14.2); RDW Standard Deviation 52.5 fL (35.1-46.3); Red Blood Cell Count 4.56 M/mm3 (4.30-5.90); White Blood Cell Count 8.43 K/mm3 (4.00-11.30)
[2023-12-20 07:18] LABS: International Normalized Ratio 1.06; Prothrombin Time Results 11.3 Sec (9.7-11.5)
[2023-12-20 07:33] LABS: Albumin, Blood 3.1 g/dL (3.4-5.0); Albumin/Globulin Ratio 0.8 (0.8-1.8); Bilirubin, Total 0.6 mg/dL (0.1-1.0); Calcium, Blood 8.6 mg/dL (8.5-10.1); Creatinine, Blood 0.92 mg/dL (0.60-1.20); Magnesium, Blood 2.1 mg/dL (1.6-2.4); Potassium, Blood 3.4 mmol/L (3.5-5.5); Total Protein, Blood 7.1 g/dL (6.4-8.2)
[2023-12-20] MEDS ORDERED: Potassium Chl 20MEQ/Water100ML 100 ML IV SCH (08:15)
--- NOTE | 2023-12-20 08:59 | NUR ---
Pt laying in bed watching tv, a/ox4, pleasant and cooperative with care, follows commands well, denies pain at this time, states he slept ok, lungs are clear a bit dim in bases, resp even and unlabored, no cough noted, hrr, piv to rfa site is clear and patent, infusing lr at 100mls/hr, pp faint to left foot, cap refill <3 sec, rbka, stump is wrapped in dressing with a bit of leakage, btx4, abd flat soft notnender, voids via urinal, skin c/w/d, except stump is a surgical wound with dressing, anibal norman, able to make needs known, call light in reach.
[2023-12-20] MEDS ORDERED: Empagliflozin 10 MG TAB PO SCH (09:00)
[2023-12-20] MEDS ORDERED: DULoxetine HCL 30 MG Cap DR PO SCH (09:00)
--- NOTE | 2023-12-20 10:36 | NUR ---
pt had a bedbath and linen change, tolerated well, call light in reach.
[2023-12-20] MEDS ORDERED: CeFAZolin Sodium 2,000 MG in NS 100 ML IV SCH (13:20)
[2023-12-20] MEDS ORDERED: Lactated Ringer's 1,000 ML IV ONE (13:31)
--- NOTE | 2023-12-20 14:04 | NUR ---
PT IN PACU FOR PRE-OP, Mickey GURROLA CAN SLIDER CONSULTING WITH PT
--- NOTE | 2023-12-20 14:09 | NUR ---
DR ROBIN CONSULTED WITH PT
[2023-12-20] MEDS ORDERED: FentaNYL Citrate 50 MCG/ML 2 ML Injection ONE (14:14)
[2023-12-20] MEDS ORDERED: propofoL 20 ML IV ONE (14:14)
[2023-12-20] MEDS ORDERED: Phenylephrine HCl 100 MCG/ML-NS 10MLSYR (1MG/10ML) ONE (14:23)
[2023-12-20] MEDS ORDERED: Bupivacaine 0.5% HCl 5 MG/ML 30MLVIAL ONE ×2 (14:52→15:06)
--- NOTE | 2023-12-20 16:00 | NUR ---
Pt returned from pacu awake, in good condition, states he just feels a bit whoozy, dressing on stump in dry and intact, vs stable, call light in reach.
--- NOTE | 2023-12-20 18:02 | NUR ---
pt doing well post surgery, resting in bed, vs stable, no complaints or needs at this time, no drainage on dressing. call light in reach.
[2023-12-21 02:48] VITALS: BP 115/67
--- NOTE | 2023-12-21 05:37 | NUR ---
NO ACUTE CHANGES OVERNIGHT. PT STABLE, VSS, NO COMPLAINTS OF PAIN - SOME DISCOMFORT.
[2023-12-21 06:51] LABS: BASOPHILS ABSOLUTE AUTO 0.03 K/mm3 (0.00-0.23); BASOPHILS PERCENT AUTO 0 % (0-2); EOSINOPHILS ABSOLUTE AUTO 0.06 K/mm3 (0.00-0.68); EOSINOPHILS PERCENT AUTO 1 % (0-6); Hematocrit 42.6 % (37.0-53.0); Hemoglobin 13.9 g/dL (13.5-17.5); IMMATURE GRAN ABSOLUTE AUTO 0.02 K/mm3 (0.00-0.10); IMMATURE GRAN PERCENT AUTO 0 % (0-1); LYMPHOCYTES PERCENT AUTO 17 % (21-46); MONOCYTES ABSOLUTE AUTO 0.74 K/mm3 (0.16-1.47); MONOCYTES PERCENT AUTO 8 % (4-13); Mean Corpuscular HGB 29.3 pg (26.0-34.0); Mean Corpuscular HGB Conc 32.6 g/dL (31.5-36.5); Mean Corpuscular Volume 90 fL (80-100); Mean Platelet Volume 9.3 fL (9.1-12.4); NEUTROPHILS ABSOLUTE AUTO 7.03 K/mm3 (1.96-9.15); NEUTROPHILS PERCENT AUTO 74 % (41-73); Platelet Count 250 K/mm3 (150-400); RDW Coefficient Variation 15.6 % (11.7-14.2); Red Blood Cell Count 4.74 M/mm3 (4.30-5.90); White Blood Cell Count 9.48 K/mm3 (4.00-11.30)
[2023-12-21 07:12] LABS: Bun/Creatinine Ratio 26.1 (12.0-20.0); Creatinine, Blood 0.81 mg/dL (0.60-1.20); Potassium, Blood 3.9 mmol/L (3.5-5.5)
[2023-12-21 07:16] VITALS: BP 105/73
[2023-12-21] MEDS ORDERED: Arginine/Glutamine/Calcium Hmb 1 Packet PO SCH (10:00)
[2023-12-21] MEDS ORDERED: ACET325 PO (10:43)
[2023-12-21] MEDS ORDERED: VISBIOME 112.51 EACH PO (10:44)
[2023-12-21] MEDS ORDERED: OXAYDO5 M1 PO (10:44)
[2023-12-21] MEDS ORDERED: SENN187 PO (10:45)
[2023-12-21] MEDS ORDERED: JUVEN PACKET1 EAC3 PO (10:45)
--- NOTE | 2023-12-21 11:56 | NUR ---
Pt. is awake and sitting on the side of his bed when he welcomes my visit. Pt. is pleasant. Pt. verbalizes his experience between his previoius hospitalization. With theraputic listeneing and a calming presence the Pt. displayed evidence of confidence in the care he received at both the Rehab and when he was re-admitted. Prayed with Pt. Pt. verbalized gratitude for the spiritual care visit.
[2023-12-21 12:37] LABS: Influenza A, PCR NEGATIVE (NEGATIVE); Influenza B, PCR NEGATIVE (NEGATIVE); Resp Syncytial Virus, PCR NEGATIVE (NEGATIVE); SARS-Cov-2 (COVID-19) PCR, MMC NEGATIVE (NEGATIVE)
[2023-12-21 15:49] VITALS: BP 106/79
[2023-12-21 19:27] VITALS: BP 120/82
--- NOTE | 2023-12-21 19:30 | NUR ---
SHIFT SUMMARY PT A&OX4 THROUGHOUT SHIFT. MAKES NEEDS KNOWN TO STAFF. USES BATHROOM WITH 1P ASSIST WITH WHEELCHAIR. PT WAS SUPPOSED TO DC TODAY TO [facility]. UNBLE TO DUE TO CLARICAL ERRORS. PT INFORMED. PT WILL POSSIBLY DC TOMMORROW. DENIES ANY CP OR SOB. VSS. NO SIGNIFICANT EVENTS HAPPENED DURING SHIFT.
[2023-12-21] MEDS ORDERED: Lactobacil 2-S.Thermo-Bifido 1 1 Cap PO SCH (21:00)
[2023-12-21] MEDS ORDERED: CeFAZolin Sodium 1,000 MG in NS 50 ML IV SCH (23:00)
[2023-12-22 05:38] VITALS: BP 109/70
--- NOTE | 2023-12-22 06:08 | NUR ---
SHIFT SUMMARY PT A&OX4 AND ANSWERS QUESTIONS APPROPRIATELY. PT RECEIVED ALL SCHEDULED AND PRN MEDICATIONS WITH NO ADVERSE REACTIONS. PT TO BE D/JAYNE LATER TODAY ON 12/21 TO [facility]. PT SPENT MOST OF SHIFT IN BED WITH EYES CLOSED AND RESPIRATIONS EVEN AND UNLABORED. NO ACUTE EVENTS AT THIS TIME. PT REPOSITIONED INDEPENDENTLY. PT LEFT IN A POSITION OF SAFETY WITH FALL PRECAUTIONS IN PLACE AND CALL LIGHT IN REACH.
[2023-12-22 07:23] VITALS: BP 122/73
[2023-12-22 15:00] VITALS: BP 121/87
[2023-12-22] MEDS ORDERED: NS 250 ML IV PRN (16:05)
--- NOTE | 2023-12-22 18:13 | NUR ---
NO ACUTE CHANGES THIS SHIFT. PATIENT HAS DC ORDERS AND IS AWAITING INSURANCE AUTH TO GO TO [facility]. DRESSING TO R BKA REMAINS C/D/I. PATIENT PLEASANT AND COOPERATIVE WITH CARE AND IS ABLE TO MAKE NEEDS KNOWN.
[2023-12-22 20:07] VITALS: BP 105/73
[2023-12-23 03:41] VITALS: BP 109/71
--- NOTE | 2023-12-23 05:59 | NUR ---
PT A&OX4 AND ANSWERS QUESTIONS APPROPRIATELY. PT IS AWAITING D/C TO [facility]. PT VSS, NO COMPLAINTS OF CP/PRESSURE OR SOB. PT RECEIVED SCHEDULED AND PRN MEDICATIONS WITH NO ADVERSE REACTIONS. PT WAS CONTINENT TO THE BR VIA W/C. NO ACUTE EVENTS AT THIS TIME. PT SPENT MOST OF SHIFT IN BED WITH EYES CLOSED AND RESPIRATIONS EVEN AND UNLABORED. PT REPOSITIONED INDEPENDENTLY. FALL PRECAUTIONS IN PLACE AND CALL LIGHT IN REACH.
[2023-12-23 07:58] VITALS: BP 96/83
--- NOTE | 2023-12-23 18:25 | NUR ---
SHIFT SUMMARY PATIENT ALERT, INTERACTIVE, AND UP IN ROOM. PATIENT USING WALKER TO WALK WITH STAND BY ASSISTANCE. DR TA IN TO SEE PATIENT AND CHANGED DRESSING OVER BKA. EDUCATION PROVIDED TO PATIENT RELATED TO WOUND CARE, DIET, MOBILIZING, AND PROSTETIC CARE. PATIENT TO GO TO BACK TO REHAB TOMORROW.
[2023-12-23 20:27] VITALS: BP 110/65
--- NOTE | 2023-12-24 03:39 | NUR ---
SHIFT SUMMARY: PT ALERT ORIENTED X 4 ABLE TO VERBALIZE NEEDS. HAS BEEN GETTING UP AND AMBULATING WITH WALKER AND SBA. C/O GENERALIZED PAIN MEDICATED WITH OXYCODONE WITH GOOD PAIN RELIEF. VSS ON RA SATTING AT 100%. DRESSING INTACT TO RT BKA SITE WITH NO DRAINAGE. HE IS PENDING DISCHARGE TO THE REHAB THAT HE CAME FROM. POSSIBLE DISCHARGE THIS AM.
[2023-12-24 04:57] VITALS: BP 125/70
[2023-12-24 07:49] VITALS: BP 95/69
[2023-12-24 10:12] LABS: SARS-Cov-2 (COVID-19) PCR, MMC NEGATIVE (NEGATIVE)
[2023-12-24] MEDS ORDERED: VISBIOME 112.51 EACH PO (10:20)
[2023-12-24] MEDS ORDERED: SULFAMETHOXAZO1 EAC1 PO (10:20)
--- NOTE | 2023-12-24 11:54 | NUR ---
Pt. is awake and sitting up on the side of his bed when he welcomes my visit. Pt. is pleasant. Pt. verbalized his expectation that he woudl be disharged today to rehab. pt. also verbalized concerns about changed that need to be made at his home to accomadate his new mobility issues. Listen with interest and empathy. Pt. displayed evidence of gratitude. Pryaed with Pt. Pt. then prayed for this albacore fishing boat crewman. Pt. verbalized gratitude for the spiritual care visit.
--- NOTE | 2023-12-24 13:18 | NUR ---
DISCHARGE PT A&0X4, COOPERATIVE, ABLE TO MAKE NEEDS KNOWN. PT DISCHARGED TO [facility] FOR ONGOING CARE. THIS RN GAVE REPORT TO SOFI MCINTOSH. HARD SCRIPT OXY WAS WITH DIRECTOR BIOSTATISTICS IN [facility], TONAL REGULATOR INFORMED. PT TRANSFERRED TO VIA WALK STAND PIVOT. BELONGINGS IN [place], TAKEN DOWNSTAIRS TO TRANSPORT.
== END 2023-12-24 13:04 ==
LOC: ER 23:13 → MEDS 23:14 → SURS 23:14 → MEDS 12-20 01:31 → ENPENDDIS 12-24 11:49 → MEDS 12-24 13:04
PROVIDERS: Internal Medicine; Orthopaedic Surgery; ADMIT Student in an Organized Health Care Education/Training Program
PROC: 0J9N0ZZ Drainage of Right Lower Leg Subcutaneous Tissue and Fascia, Open Approach (ICD-10-PCS; principal; 2023-12-20 14:00)
DX: T81.31XA Disruption of external operation (surgical) wound, not elsewhere classified, initial encounter (principal); E11.40 Type 2 diabetes mellitus with diabetic neuropathy, unspecified; E11.69 Type 2 diabetes mellitus with other specified complication; M86.671 Other chronic osteomyelitis, right ankle and foot; Z88.8 Allergy status to other drugs, medicaments and biological substances; Z89.421 Acquired absence of other right toe(s); Z89.511 Acquired absence of right leg below knee; Y83.8 Other surgical procedures as the cause of abnormal reaction of the patient, or of later complication, without mention of misadventure at the time of the procedure; Z79.899 Other long term (current) drug therapy
CPT/HCPCS: 0241U; 36415; 80048; 80053; 82947; 83735; 85025; 85610; 87070; 87075; 87205; 96365; 96366; 96367; 96376; 99284-25; A9270; G0378; J0690; J2371; J2704; J3010; J3480; J7050; J7120; U0002

== ENCOUNTER 2024-01-20 11:04 | Emergency (ER) | payer OTHER ==
[~2024-01-20] VITALS: Ht 177.8 cm; Wt 90.7 kg
[~2024-01-20 11:04] MED LIST changes: -Gabapentin 300 MG Cap PO SCH; +JUVEN PACKET1 EAC3 PO; -Lactated Ringer's 1,000 ML IV SCH; +OXAYDO5 M1 PO; +SENN187 PO; +SULFAMETHOXAZO1 EAC1 PO
[2024-01-20 11:14] VITALS: BP 122/74
== END 2024-01-20 13:40 | disposition home or self-care (01) ==
LOC: ER 11:04
DX: R53.1 Weakness (principal)
CPT/HCPCS: 99283